=== PATIENT | male | born 1950 | race Caucasian/White ===

== ENCOUNTER 2023-03-18 05:11 | Day surgery (SDC) | payer OTHER ==
[2023-03-17 15:22] VITALS: BMI 26.2
[2023-03-18] MEDS ORDERED: LIDOCAINE HCL/PF 1% SDV 5ML VIAL ONE (07:17)
[2023-03-18] MEDS ORDERED: DEXAMETHASONE SOD PHOSPHATE 10 MG/1 ML VIAL ONE (07:18)
[2023-03-18 07:23] VITALS: TEMP 98.2
[2023-03-18] MEDS ORDERED: DEXAMETHASONE SOD PHOSPHATE 10 MG/1 ML VIAL IM ONE (10:04)
[2023-03-18] MEDS ORDERED: LIDOCAINE HCL 1%, 10 MG/ML (50 mL VIAL) NR ONE (10:04)
[2023-03-18] MEDS ORDERED: IOHEXOL 180 MG/1 ML ML IJ ONE (10:04)
[2023-03-18 10:24] VITALS: BP 148/77; PULSE 78; RESP 16
[2023-03-18] MEDS ORDERED: ACETAMINOPHEN 500 MG TABLET (FP) PO PRN (13:40)
== END 2023-03-18 10:41 | disposition home or self-care (01) ==
LOC: JASU-SURG 05:11
PROVIDERS: ATTEND Pain Medicine Pain Medicine
PROC: 3E0R3BZ Introduction of Anesthetic Agent into Spinal Canal, Percutaneous Approach (ICD-10-PCS; 2023-03-18)
PROC: 3E0R33Z Introduction of Anti-inflammatory into Spinal Canal, Percutaneous Approach (ICD-10-PCS; principal; 2023-03-18 09:15)
DX: M48.061 Spinal stenosis, lumbar region without neurogenic claudication (principal); M54.16 Radiculopathy, lumbar region
CPT/HCPCS: 76000-TC-FY; 82962; J1100

== ENCOUNTER 2023-04-18 03:57 | Day surgery (SDC) | payer OTHER ==
[2023-04-11 16:27] VITALS: BMI 26.2
[~2023-04-18 03:57] MED LIST: ACETAMINOPHEN 500 MG TABLET (FP) PO PRN; BUPIVACAINE HCL/PF 0.75% 10 ML VIAL NR ONE; LIDOCAINE 1% P/F 10 MG/ML VIAL INF ONE
[2023-04-18] MEDS ORDERED: LIDOCAINE HCL/PF 1% SDV 5ML VIAL ONE (07:22)
[2023-04-18] MEDS ORDERED: BUPIVACAINE HCL/PF 0.75% 10 ML VIAL ONE (07:22)
[2023-04-18 10:10] VITALS: BP 154/89; PULSE 79; RESP 18; TEMP 97.7
[2023-04-18] MEDS ORDERED: ACETAMINOPHEN 500 MG TABLET (FP) PO PRN (12:49)
== END 2023-04-18 10:00 | disposition home or self-care (01) ==
LOC: JASU-SURG 03:57
PROVIDERS: ATTEND Pain Medicine Pain Medicine
PROC: 3E0T3BZ Introduction of Anesthetic Agent into Peripheral Nerves and Plexi, Percutaneous Approach (ICD-10-PCS; principal; 2023-04-18 09:15)
DX: M47.816 Spondylosis without myelopathy or radiculopathy, lumbar region (principal)
CPT/HCPCS: 76000-TC-FY

== ENCOUNTER 2024-06-22 16:06 | Emergency (ER) | payer OTHER ==
[2024-06-22] MEDS ORDERED: ONDANSETRON 4 MG/2 ML VIAL ONE (16:48)
[2024-06-22] MEDS: ONDANSETRON 4 MG/2 ML VIAL IVPUSH ONE (16:55)
[2024-06-22 17:34] VITALS: BMI 31.7
[2024-06-22] MEDS ORDERED: LABETALOL HCL 20 MG/4 ML VIAL ONE ×3 (17:44→22:53)
[2024-06-22] MEDS: SODIUM CHLORIDE 0.9% 500 ML INFUS.BAG IV ONE (17:48)
[2024-06-22] MEDS: LABETALOL HCL 20 MG/4 ML VIAL IVPUSH ONE ×3 (17:48→22:55)
[2024-06-22 18:11] LABS: VENOUS BASE EXCESS -6.2 mmol/L (-2-2); VENOUS O2 SATURATION 91.7 % (70-80); VENOUS PH 7.207 (7.310-7.410)
[2024-06-22 18:13] LABS: HEMOGLOBIN 13.7 GM/dL (11.7-16.9); MCH 30.5 pg (25.7-33.7); MCHC 32.5 g/dl (32.0-35.9); MEAN CELL VOLUME 93.7 fl (80-96); MEAN PLT VOLUME 6.9 fl (7.5-11.1); PLATELET COUNT 215 10^3/uL (134-434); RBC 4.48 M/mm3 (4.00-5.60); RDW 14.9 % (11.9-15.9); WHITE BLOOD COUNT 9.7 K/mm3 (4.0-10.0)
[2024-06-22 18:14] LABS: POTASSIUM 3.9 mmol/L (3.5-5.1)
[2024-06-22 18:16] LABS: CALCIUM 9.4 mg/dL (8.5-10.1)
[2024-06-22 18:17] LABS: ALBUMIN 4.6 g/dl (3.4-5.0); BLOOD UREA NITROGEN 8.3 mg/dL (7-18); MAGNESIUM 1.8 mg/dL (1.8-2.4)
[2024-06-22 18:20] LABS: ACTIVATED PTT 27.8 SECONDS (25.2-36.5); CREATININE 0.7 mg/dL (0.55-1.3); INR 1.04 (0.83-1.09); PHOSPHOROUS 4.7 mg/dL (2.5-4.9); PROTHROMBIN TIME (PATIENT) 11.9 SEC (9.7-13.0)
[2024-06-22 18:21] LABS: BILIRUBIN,TOTAL 0.7 mg/dL (0.2-1)
[2024-06-22 18:22] LABS: TOT PROT 7.5 g/dl (6.4-8.2)
[2024-06-22] MEDS ORDERED: LORazepam 2 MG/ML SDV VIAL ONE ×2 (18:23→18:30)
[2024-06-22] MEDS ORDERED: levETIRAcetam 500 MG/5 ML INJECTION VIAL IVPB ONE (18:24)
[2024-06-22] MEDS ORDERED: RAPID SEQUENCE INTUBATION KIT NR ONE (18:26)
[2024-06-22] MEDS ORDERED: DEXAMETHASONE SOD PHOSPHATE 10 MG/1 ML VIAL ONE (18:26)
[2024-06-22 18:27] LABS: N-TERMINAL BNP 143.5 pg/ml (5-125)
[2024-06-22] MEDS: LORazepam 2 MG/ML SDV VIAL IVPUSH ONE (18:27)
[2024-06-22] MEDS: DEXAMETHASONE SOD PHOSPHATE 10 MG/1 ML VIAL IVPUSH ONE (18:28)
[2024-06-22] MEDS: levETIRAcetam 500 MG/5 ML INJECTION VIAL IVPB ONE (18:28)
[2024-06-22 18:43] LABS: CHOLESTEROL 143 mg/dL (50-200)
[2024-06-22 18:45] LABS: LDL CHOLESTEROL (ONLY SJRH) 65 mg/dL (5-100)
[2024-06-22 18:46] LABS: HDL CHOLESTEROL 70 mg/dL (40-60)
[2024-06-22] MEDS ORDERED: ACETAMINOPHEN INJECTION 100 ML ONE (19:14)
[2024-06-22] MEDS: SODIUM CHLORIDE 1,000 ML IV STA (19:18)
[2024-06-22] MEDS: ACETAMINOPHEN 1000 MG/100 ML BAG IVPB ONE (19:33)
[2024-06-22 19:57] LABS: ANISOCYTOSIS 0; MACROCYTOSIS 0
[2024-06-22 20:29] LABS: URINE AMPHETAMINES NEGATIVE (NEGATIVE)
[2024-06-22 20:30] LABS: METHADONE, UR NEGATIVE (NEGATIVE); OPIATES, URI NEGATIVE (NEGATIVE); PHENCYCLIDINE,URINE NEGATIVE (NEGATIVE); URINE BENZODIAZEPINES NEGATIVE (NEGATIVE)
[2024-06-22 20:31] LABS: COCAINE, UR NEGATIVE (NEGATIVE)
[2024-06-22 20:36] LABS: URINE BARBITURATES NEGATIVE (NEGATIVE)
[2024-06-22 21:00] LABS: URINE APPEARANCE CLEAR; URINE BILIRUBIN NEGATIVE (NEGATIVE); URINE COLOR RED; URINE GLUCOSE (UA) >1000 mg/dl (NEGATIVE)
[2024-06-22 21:01] LABS: EPI CELLS 19.5 /uL (0-25.1); HYALINE CASTS 9.6 /uL (0-3.1); URINE KETONE 40 mg/dl (NEGATIVE); URINE LEUK ESTERASE NEGATIVE (NEGATIVE); URINE NITRITE NEGATIVE (NEGATIVE); URINE PROTEIN 30 (NEGATIVE); URINE RBC 10471.2 /uL (0-23.9); URINE UROBILINOGEN 0.2 mg/dL (0.2-1.0)
[2024-06-22 21:02] LABS: URINE BACTERIA 0 /uL (0-1359); URINE CRYSTALS 5.6 /hpf
[2024-06-22 22:52] VITALS: TEMP 99.2
[2024-06-22 23:32] VITALS: BP 158/85; PULSE 99; RESP 20
== END 2024-06-22 23:36 | disposition short-term general hospital (02) ==
LOC: JER 16:06
PROC: 3E033NZ Introduction of Analgesics, Hypnotics, Sedatives into Peripheral Vein, Percutaneous Approach (ICD-10-PCS; principal; 2024-06-22)
PROC: 3E033GC Introduction of Other Therapeutic Substance into Peripheral Vein, Percutaneous Approach (ICD-10-PCS; 2024-06-22)
PROC: 3E033GC Introduction of Other Therapeutic Substance into Peripheral Vein, Percutaneous Approach (ICD-10-PCS; 2024-06-22)
PROC: 3E033GC Introduction of Other Therapeutic Substance into Peripheral Vein, Percutaneous Approach (ICD-10-PCS; 2024-06-22)
PROC: 3E033GC Introduction of Other Therapeutic Substance into Peripheral Vein, Percutaneous Approach (ICD-10-PCS; 2024-06-22)
PROC: 3E033GC Introduction of Other Therapeutic Substance into Peripheral Vein, Percutaneous Approach (ICD-10-PCS; 2024-06-22)
PROC: 3E033GC Introduction of Other Therapeutic Substance into Peripheral Vein, Percutaneous Approach (ICD-10-PCS; 2024-06-22)
PROC: 3E033GC Introduction of Other Therapeutic Substance into Peripheral Vein, Percutaneous Approach (ICD-10-PCS; 2024-06-22)
DX: R41.82 Altered mental status, unspecified (principal); R00.0 Tachycardia, unspecified; Z20.822 Contact with and (suspected) exposure to COVID-19
CPT/HCPCS: 0241U-QW; 36415; 70450-TC; 70496-TC; 70498-TC; 71045-TC-FY; 71275-TC; 73630-TC-RT-FY; 74174-TC; 80053; 80061; 80307; 81003; 82803; 83036; 83605; 83690; 83735; 83880; 84100; 84484; 85025; 85610; 85730; 86850; 86900; 86901; 87086; 93005; 93010; 96374; 96375; 96376; 99285-25; J0131; J1100; Q9967